=== PATIENT | male | born 1995 | race African-American/Black ===

== ENCOUNTER 2017-06-16 12:29 | Emergency (ER) | payer SELFPAY ==
[~2017-06-16] VITALS: Ht 172.7 cm; Wt 80.0 kg
[2017-06-16] MEDS: MORPHINE SULFATE 10 MG/ML CPJ IV ONE (12:50)
[2017-06-16] MEDS: SODIUM CHLORIDE 0.9% 1,000 ML IV ONE (12:50)
[2017-06-16 13:00] LABS: BASOPHILS % 0.4 % (0.0-2.0); HEMATOCRIT. 44.8 % (42.0-52.0); HEMOGLOBIN. 15.1 g/dL (14.0-18.0); LYMPHOCYTES % 16.8 % (20.0-50.0); MEAN CORPUSCULAR HEMOGLOBIN 28.9 pg (28.0-32.0); MEAN PLATELET VOLUME 8.3 fl (7.4-10.4); MONOCYTES % 10.5 % (2.0-8.0); NEUTROPHILS % 69.3 % (40.0-76.0); PLATELET 208 x1000/uL (130-400); RED BLOOD CELL COUNT 5.22 mill/uL (4.7-6.1); RED CELL DISTRIBUTION WIDTH 12.5 % (11.6-14.6)
[2017-06-16] MEDS ORDERED: IOHEXOL-350 100 ML BOTTLE ONE (13:04)
[2017-06-16 13:10] LABS: CARBON DIOXIDE 28 mEq/L (21-32); CHLORIDE 106 mEq/L (98-107)
[2017-06-16 14:46] VITALS: BP 157/81
== END 2017-06-16 15:35 | disposition home or self-care (01) ==
LOC: ER 12:29
DX: S71.132A Puncture wound without foreign body, left thigh, initial encounter (principal); F17.200 Nicotine dependence, unspecified, uncomplicated; F12.10 Cannabis abuse, uncomplicated; W34.00XA Accidental discharge from unspecified firearms or gun, initial encounter; Y93.89 Activity, other specified; Y92.89 Other specified places as the place of occurrence of the external cause; Y99.8 Other external cause status
CPT/HCPCS: 36415; 72191; 73706; 80048; 85025; 96374; 99285; J2270; Q9967; X7700; Z7610; J7030

== ENCOUNTER 2019-04-29 01:18 | Emergency (ER) | payer MEDICAID ==
[~2019-04-29] VITALS: Ht 177.8 cm; Wt 96.0 kg
[2019-04-29] MEDS ORDERED: SODIUM CHLORIDE 0.9% 1,000 ML IV ONE (01:25)
[2019-04-29] MEDS ORDERED: ONDANSETRON HCL 4MG/2ML INJ IV STA (01:25)
[2019-04-29] MEDS ORDERED: MORPHINE SULFATE 4 MG/ML CPJ (NOT FOR IM USE) IV STA (01:25)
[2019-04-29] MEDS ORDERED: BACITRACIN ZINC OINT UDPKT TOP ONE (01:30)
[2019-04-29] MEDS ORDERED: CEFAZOLIN 1000MG PREMIX 50 ML IV ONE (01:30)
[2019-04-29 01:43] LABS: BASOPHILS % 0.4 % (0.0-2.0); EOSINOPHILS % 0.1 % (0.0-5.0); HEMATOCRIT. 44.8 % (42.0-52.0); HEMOGLOBIN. 14.9 g/dL (14.0-18.0); LYMPHOCYTES % 16.2 % (20.0-50.0); MEAN CORPUSCULAR HEMOGLOBIN 28.9 pg (28.0-32.0); MEAN PLATELET VOLUME 8.1 fl (7.4-10.4); NEUTROPHILS % 75.3 % (40.0-76.0); PLATELET 217 x1000/uL (130-400); RED BLOOD CELL COUNT 5.14 mill/uL (4.7-6.1); RED CELL DISTRIBUTION WIDTH 13.4 % (11.6-14.6)
[2019-04-29 01:47] LABS: CHLORIDE 107 mEq/L (98-107)
[2019-04-29] MEDS ORDERED: IOHEXOL-350 100 ML BOTTLE ONE (03:09)
[2019-04-29] MEDS ORDERED: IOHEXOL-300 100 ML BOTTLE ONE (03:09)
[2019-04-29 04:00] VITALS: BP 181/115
== END 2019-04-29 04:08 | disposition home or self-care (01) ==
LOC: ER 01:25
DX: S21.102A Unspecified open wound of left front wall of thorax without penetration into thoracic cavity, initial encounter (principal); S80.812A Abrasion, left lower leg, initial encounter; S00.81XA Abrasion of other part of head, initial encounter; F17.200 Nicotine dependence, unspecified, uncomplicated; W33.01XA Accidental discharge of shotgun, initial encounter; Y93.89 Activity, other specified; Y92.89 Other specified places as the place of occurrence of the external cause; Y99.8 Other external cause status
CPT/HCPCS: 36415; 71045; 71260; 73206; 80053; 85025; 86850; 86900; 86901; 93005; 96365; 96375; 99284; J0690; J2270; J2405; J7030; Q9967; Z7610